=== PATIENT | male | born 1950 | race Caucasian/White ===

== ENCOUNTER 2016-07-21 13:09 | Inpatient (IN) | payer MEDICARE ==
[~2016-07-21] VITALS: Ht 172.7 cm; Wt 94.6 kg
[2016-07-21] VITALS (11 sets, daily range): BP systolic 109–152; BP diastolic 54–106
[2016-07-21] MEDS ORDERED: BUSPIRONE HCL15 MG PO (13:23)
[2016-07-21] MEDS ORDERED: GLIPIZIDE 5MG TA5 MG PO (13:24)
[2016-07-21] MEDS ORDERED: VITAMIN E 400400 IU PO (13:25)
[2016-07-21] MEDS ORDERED: BUPROPION HCL150 M1 PO (13:25)
[2016-07-21] MEDS ORDERED: SERTRALINE 100100 MG PO (13:25)
[2016-07-21] MEDS ORDERED: GABAPENTIN300 M1 PO (13:26)
[2016-07-21] MEDS ORDERED: ZOLPIDEM 5MG TAB5 MG PO (13:27)
[2016-07-21] MEDS ORDERED: PIOGLITAZONE HC30 M1 PO (13:27)
[2016-07-21] MEDS ORDERED: POTASSIUM CHLO10 ME4 PO (13:28)
[2016-07-21] MEDS ORDERED: MELOXICAM15 MG PO (13:28)
[2016-07-21] MEDS ORDERED: BUSPAR 10MG TAB10 MG PO (13:29)
[2016-07-21] MEDS ORDERED: LOVASTATIN40 MG PO (13:29)
[2016-07-21] MEDS ORDERED: LISINOPRIL20 MG PO (13:29)
[2016-07-21] MEDS ORDERED: METFORMIN 500M500 M1 PO (13:30)
[2016-07-21] MEDS ORDERED: [UNRECOGNIZED DRUG - REMARK] MC (13:30)
[2016-07-21] MEDS ORDERED: METOCLOPRAMIDE10 M3 PO (13:31)
[2016-07-21] MEDS ORDERED: ASPIRIN 81MG TA81 MG PO (13:31)
[2016-07-21 13:50] LABS: URINE BLOOD NEGATIVE (NEG)
--- NOTE | 2016-07-21 13:52 | Emergency Room Report ---
History of Present Illness Time Seen by MD Woodson Presenting Problem in Triage Pt arrived:Walked Presenting Problem:c/o "soreness" in RLQ x 2 days. 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 N Clinical Suspician of Infection? N Mental Status: 1 - Regular (Normal Baseline) Sepsis Risk:Possible Sepsis Risk Have you (or family members/close friends) recently traveled outside the [place]? N If Yes, where/when: Have you had exposure to infectious disease within the past month? N TB? Other? Specify: Source patient, RN notes reviewed Exam Limitations no limitations Comment Pt. comes to the ED with complaints of severe RLQ pain that started 3 weeks ago and then went away and returned about 2 days ago. No fever, no vomiting , no diarrhea, no urinary tract symptoms but very tender in RLQ. He has a history of DM type 2 and no abd. surgeries in the past. Cardiac Chest Pain Chest pain indicative of cardiac No ALLERGIES Coded Allergies: No Known Allergies (07/21/16) Home Medications Reported Medications Buspirone Hcl 15 MG PO DAILY #180 Glipizide (Glipizide 5MG) 5 MG PO BID #135 Sertraline Hydrochloride (Sertraline 100MG) 100 MG PO DAILY #180 Bupropion Hcl (Bupropion HCl Sr) 150 MG PO DAILY #270 Vitamin E (Vitamin E 400 UNITS) 400 IUNITS PO DAILY #1 Gabapentin 300 MG PO BID #90 PIOGLITAZONE HCL (Pioglitazone HCl) 30 MG PO KARINE #90 Zolpidem Tartrate (Zolpidem) 5 MG PO QHS #90 Potassium Chloride 10 MEQ PO DAILY #270 Meloxicam (Meloxicam 15MG) 15 MG PO BID #90 Buspirone Hcl (Buspar 10MG) 10 MG PO DAILY #60 Lisinopril 20 MG PO DAILY #90 Lovastatin 40 MG PO DAILY #90 Blood Sugar Diagnostic (Prodigy No Coding) 1 EACH MC BID #200 Metformin HCl (Metformin) 500 MG PO BID #360 METOCLOPRAMIDE HCL (Metoclopramide Hydrochloride) 10 MG PO DAILY #180 ASPIRIN (Aspirin) 81 MG PO DAILY History Medical History General Hypertension? Yes Diabetes? Yes Insulin Dependent: No Insulin Pump: No Home FSBS? Yes Depression? 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 Musculoskeletal see HPI Physical Exam Vital Signs Vital Signs Date Time Temp Pulse Resp B/P Pulse O2 O2 Flow FiO2 Ox Delivery Rate 07/21 1533 91 18 117/65 96 07/21 1455 86 18 135/77 93 07/21 1401 89 22 123/63 91 07/21 1312 98.0 96 24 144/106 96 General Appearance normal appearance, WD/WN, no apparent distress Respiratory Status No: respiratory distress. 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 No Results/Orders Laboratory Tests 07/21/16 1400: Sodium 133 L, Potassium 4.5, Chloride 99, Carbon Dioxide 22, BUN 33 H, Creatinine 1.5 H, Estimated Creat Clear 64, Estimated GFR (MDRD) 47, Glucose 187 H, Calcium 8.7, Total Bilirubin 0.6, AST 16, ALT 26, Alkaline Phosphatase 62, Total Protein 7.1, Albumin 3.6, Globulin 3.5 H, Albumin/Globulin Ratio 1.0 L, Amylase 48, Lipase 129 07/21/16 1345: Urine Color DK YELLOW, Urine Appearance CLEAR, Urine pH 5.5, Ur Specific [place] >= 1.030, Urine Protein NEGATIVE, Urine Ketones NEGATIVE, Urine Blood NEGATIVE, Urine Nitrate NEGATIVE, Urine Bilirubin 1+ H, Urine Urobilinogen 0.2, Ur Leukocyte Esterase NEGATIVE, Urine WBC 3-5, Urine Bacteria 2+, Hyaline Casts 5- 10, Urine Mucus 1+, Urine Glucose NEGATIVE 07/21/16 1320: WBC 11.2 H, RBC 4.67, Hgb 13.8 L, Hct 40.4 L, MCV 86.5, RDW 14.7, Plt Count 205, Gran % 85.0 H, Gran # 9.5 H, Total Counted 100, Lymphocytes % 12.0, Monocytes % 3, Neutrophils 79 H, Band Neutrophils 4, Lymphocytes (Manual) 13, Lymphocytes # 1.3, Monocytes (Manual) 3, Monocytes # 0.3, Myelocytes 1, Platelet Estimate NORMAL, Hypochromasia 1+, Macrocytosis 1+, PUBS MCHC 34.2, MCH 29.6 Current Medication Orders Sig/Nadia Start time Last Medication Dose Route Stop Time Status Admin Sodium Chloride 10 ML PRN PRN 07/21 1345 AC IV 07/22 1337 Orders Procedure Date/time Status DIET-NOTHING BY MOUTH 07/21 D Active CULTURE, URINE 07/[address] ABD/PELVIS REQ 07/21 1342 Complete IV SALINE LOCK 07/21 1337 Active URINALYSIS/COMPLETE 07/21 1336 Complete LIPASE 07/21 1336 Complete COMPLETE METABOLIC PANEL 07/21 1336 Complete CBC WITH AUTO DIFF 07/21 1336 Complete AMYLASE 07/21 1336 Complete DIFFERENTIAL-WBC 07/21 1320 Complete XRAY/CT/US XRAY/CT/US XRAY abdomen CT abdomen, pelvis CT interpretation by discussed w/radiologist Time results known: 1546 CT Results Acute appendicitis Departure Departure Time of Disposition 154 Disposition Still a Patient Clinical Impression Primary Impression: Acute appendicitis Qualifiers: Acute appendicitis type: with localized peritonitis Qualified Code: K35.3 - Acute appendicitis with localized peritonitis Condition STABLE Referrals Zachariah Reyna MD (Family) Additional Instructions Spoke with Dr. Tello and he asked for the OR team to be called in for surgery Discharge Counseling Counseled pt/family regarding diagnosis, test results, follow up needs ED Critical Care Critical Care No If Critical Care minutes are documented, the time involved in the performance of seperately reportable procedures was not counted toward critical care time documented. I directly delivered medical care to this critically ill and/or injured patient. Timely evaluation and treatment was necessary to address the significant organ system(s) dysfunction present in this patient. at 1545
[2016-07-21 13:54] LABS: HEMOGLOBIN 13.8 g/dL (14.1-18.0)
[2016-07-21 13:55] LABS: LYMPH # 1.3 K/mm3 (0.7-4.5)
[2016-07-21 14:21] LABS: URINE BILIRUBIN - DIPSTICK 1+ (NEG)
[2016-07-21 14:24] LABS: NEUTROPHILS 79 % (42-76)
--- NOTE | 2016-07-21 15:14 | RADIOLOGY REPORT PS360 ---
CT ABD PELVIS W/O CONTRAST CLINICAL INDICATION: Right lower quadrant pain or RLQ PAIN COMPARISON: None TECHNIQUE: Axial images obtained with sagittal and coronal reformats. PROCEDURE: Oral Contrast: None IV Contrast: None . FINDINGS: There is generalized motion artifact which does obscure fine detail. The liver, spleen, adrenal glands, and pancreas have an unremarkable unenhanced CT appearance. There is some slight increased density in the neck of the gallbladder which could be due to small stones versus artifact. No obstructing renal or ureteral calculi. There is a small hiatal hernia. No intestinal obstruction or free air is evident. The appendix is distended measuring up to 17 mm fluid-filled with thickened wall and stranding of the periappendiceal fat. There is also thickening of the cecum and mild thickening of the terminal ileum probably related to local inflammatory changes from appendicitis. No obvious abscess or local perforation evident. There is sigmoid diverticulosis but no evidence of diverticulitis. Right hip prosthesis is noted. No acute bony anomalies. IMPRESSION: 1. Distended thickened appendix with associated thickening of the cecum and terminal ileum with stranding of the periappendiceal and pericecal fat consistent with inflammatory process in the right lower quadrant. The distention and thickening of the appendix leads one to suspect appendicitis with subadjacent inflammatory changes of the cecum and terminal ileum. Terminal ileitis or typhlitis of the cecum also a consideration with subadjacent inflammatory changes of the appendix. No evidence of free air or abscess.
--- NOTE | 2016-07-21 19:40 | Operative Note ---
Surgeon/Diagnoses Surgeon/Saute Chef(s) Date of procedure: 07/21/16 Surgeon: MD Jodi Tello Diagnoses Pre-op diagnosis: Appendicitis Post-op diagnosis Necrotic/perforated appendicitis Procedure Procedure Procedure: Laparoscopic appendectomy Indications: NBA WADE is a 66 year-old Male with a history of RIGHT lower quadrant pain and radiographic evidence of severe appendicitis. Findings: Severe inflammatory changes with fat stranding and suppuration throughout the RIGHT lower quadrant Severe necrosis of appendix with perforation Procedure Description: After informed consent was obtained, the patient was taken to the operating room and placed in the supine position. General anesthesia was induced and the patient's abdomen was prepped and draped in a sterile fashion. After infiltration with local anesthetic and infraumbilical incision was made. A Veress needle was placed in position. The abdomen was insufflated. A 12 mm optical trochars placed in position. Under direct visualization a 5 mm trocar was placed in the suprapubic position and an additional 5 mm trochars placed in the LEFT lower quadrant. Evaluation of the RIGHT lower quadrant revealed severe inflammatory changes and suppuration throughout the RIGHT lower quadrant. Multiple loops of small bowel, omentum, colon, and mesentery were involved. Careful dissection was utilized to free multiple loops of tissue. Suffered no changes were noted throughout the area. Identification of the actual appendix was exceptionally difficult. Obvious necrosis and perforation was noted. The appendix was removed in a piecemeal fashion and placed in a retrieval bag (3). The apparent base was then carefully secured, elevated, and controlled with Endoloops (2). The entire area was thoroughly irrigated. An additional 5 mm trochars placed in the RIGHT upper quadrant to facilitate further dissection. A number 10 Bridger-Rodriguez drain was placed along the RIGHT gutter and appendiceal bed. A second drain was placed in a more horizontal plane along the bed. The first drain was exited through the superior/RIGHT lower quadrant trocar site. The second drain was exited through the suprapubic trocar site. The fascia at the infraumbilical trocar site was reapproximated utilizing the madison-close device. Pneumoperitoneum was released as the remaining trocar was removed. All wounds were irrigated and skin was closed with 4-0 Monocryl. Both Bridger-Rodriguez drains were secured with 2-0 nylon. Dressings were applied and the patient's anesthetic agents were reversed. He was extubated prior to transfer to recovery. EBL (ml): 25 Anesthesia: GETA Complications: No immediate Specimens: Appendiceal base (evaluate for appendiceal tissue) Appendix (multiple specimens) Disposition Disposition: Stable to recovery from where he will be transferred to the floor. at [id number]
[2016-07-21 20:48] LABS: URINE BILIRUBIN - DIPSTICK NEGATIVE (NEG); URINE BLOOD 2+ (NEG)
[2016-07-21] MEDS ORDERED: POTASSIUM CHLO10 ME3 PO (21:08)
[2016-07-22] VITALS (9 sets, daily range): BP systolic 112–163; BP diastolic 56–84
[2016-07-22 06:19] LABS: HEMOGLOBIN 11.9 g/dL (14.1-18.0); LYMPH % 12.4 % (10-50)
--- NOTE | 2016-07-22 08:41 | POST-OP PROGRESS NOTE ---
See Addendum Post Op Subjective Data Patient is post-op day 1 Subjective data: Feels "fine". Post op objective data Vitals,I&O,and Labs: Vital signs, intake and output,and available lab data for the last 24 hours is as noted below. Vital Signs Date Time Temp Pulse Resp B/P Pulse O2 O2 Flow FiO2 Ox Delivery Rate 07/22 0815 99.0 100 20 134/74 93 ROOM AIR 2 07/22 0738 18 07/22 0320 98.7 86 18 116/67 99 2 07/22 0220 98.5 86 18 122/60 97 2 07/22 0146 2 07/22 0120 97.8 85 16 130/61 98 2 07/22 0114 18 07/22 0111 2 07/22 0020 98.0 83 18 112/63 98 2 07/21 2348 18 07/21 2344 2 07/21 2320 98.0 87 18 143/72 95 2 07/21 2250 97.8 84 18 109/54 97 2 07/21 2249 2 07/21 2220 98.0 89 18 120/68 98 2 07/21 2158 2 07/21 2150 98.0 89 18 126/72 98 2 07/21 2120 97.5 90 18 134/73 96 2 07/218 2 07/21 2105 97.6 95 17 147/74 96 2 07/21 2103 97.5 92 18 146/74 93 OXYGEN 2 07/21 2102 89 20 149/73 96 07/21 2054 97.4 07/21 2050 97.1 91 18 152/75 93 2 07/21 2049 97.5 92 18 146/74 93 2 07/21 2035 97.5 92 18 146/74 93 2 07/21 2030 97.5 95 18 132/62 96 OXYGEN 07/21 2027 96 18 138/65 95 OXYGEN 07/21 2017 16 07/21 2017 97 18 139/67 97 OXYGEN 07/21 2007 16 07/21 2007 95 18 134/68 96 OXYGEN 07/21 1957 103 16 140/66 95 OXYGEN 07/21 1947 16 07/21 1947 105 16 147/80 96 OXYGEN 07/21 1937 97.4 115 16 175/83 94 OXYGEN 07/21 1634 99.9 90 20 136/72 96 07/21 1629 99.9 90 20 136/72 96 07/21 1604 99.9 89 20 149/73 96 07/21 1559 99.9 89 20 149/73 96 07/21 1533 91 18 117/65 96 07/21 1455 86 18 135/77 93 07/21 1401 89 22 123/63 91 07/21 1312 98.0 96 24 144/106 96 07/21 1500 07/21 2300 07/22 0700 Intake Total 925 1810 Output Total 245 700 Balance 680 1110 Intake, IV 600 1270 Intake, Oral 325 540 Intake, Tube 0 Irrigant Output, 0 Emesis Output, 0 Estimated Blood Loss Output, Other 45 Output, Urine 200 700 Patient 95.256 kg 94.575 kg Weight Laboratory Tests Test Result Date Time Chemistry Sodium (mmoL/L) 134 07/22 0555 Potassium (mmoL/L) 4.2 07/22 0555 Chloride (mmoL/L) 101 07/22 0555 Carbon Dioxide (mmoL/L) 28 07/22 0555 BUN (mg/dL) 27 07/22 0555 Creatinine (mg/dL) 1.2 07/22 0555 Estimated Creat Clear (ML/MIN) 79 07/22 0555 Estimated GFR (MDRD) (ML/MIN) 60 07/22 0555 Glucose (mg/dL) 172 07/22 0555 Calcium (mg/dL) 8.0 07/22 0555 Total Bilirubin (mg/dL) 0.6 07/21 1400 AST (U/L) 16 07/21 1400 ALT (U/L) 26 07/21 1400 Alkaline Phosphatase (U/L) 62 07/21 1400 Total Protein (gm/dL) 7.1 07/21 1400 Albumin (gm/dL) 3.6 07/21 1400 Globulin (gm/dL) 3.5 07/21 1400 Albumin/Globulin Ratio 1.0 07/21 1400 Amylase (U/L) 48 07/21 1400 Lipase (U/L) 129 07/21 1400 Hematology WBC (K/MM3) 7.9 07/22 0555 RBC (M/mm3) 4.00 07/22 0555 Hgb (g/dL) 11.9 07/22 0555 Hct (%) 36.0 07/22 0555 MCV (fl) 89.9 07/22 0555 RDW (%) 14.4 07/22 0555 Plt Count (K/mm3) 160 07/22 0555 MPV (fl) 8.7 07/22 0555 Gran % (%) 79.6 07/22 0555 Gran # (K/mm3) 6.3 07/22 0555 Total Counted (#CELLS) 100 07/21 1320 Lymphocytes % (%) 12.4 07/22 0555 Monocytes % (%) 7.3 07/22 0555 Eosinophils % (%) 0.4 07/22 0555 Basophils % (%) 0.3 07/22 0555 Neutrophils (%) 79 07/21 1320 Band Neutrophils (%) 4 07/21 1320 Lymphocytes (Manual) (%) 13 07/21 1320 Lymphocytes # (K/mm3) 1.0 07/22 0555 Monocytes (Manual) (%) 3 07/21 1320 Monocytes # (K/mm3) 0.6 07/22 0555 Eosinophils # (K/mm3) 0.0 07/22 0555 Basophils # (K/MM3) 0.0 07/22 0555 Myelocytes (%) 1 07/21 1320 Platelet Estimate NORMAL 07/21 1320 Hypochromasia 1+ 07/21 1320 Macrocytosis 1+ 07/21 1320 PUBS MCHC (g/dl) 33.0 07/22 555 Immunology MCH (pg) 29.6 07/22 05 Urines Urine Color YELLOW 07/21 1648 Urine Appearance CLEAR 07/21 1648 Urine pH 5.5 07/218 Ur Specific [place] >= 1.030 07/21 1648 Urine Protein (mg/dL) NEGATIVE 07/21 1648 Urine Ketones (mg/dL) NEGATIVE 07/21 1648 Urine Blood 2+ 07/21 1648 Urine Nitrate NEGATIVE 07/21 1648 Urine Bilirubin NEGATIVE 07/21 1648 Urine Urobilinogen (E.U./dL) 0.2 07/21 1648 Ur Leukocyte Esterase NEGATIVE 07/21 1648 Urine WBC (wbc/hpf) OCC 07/21 1648 Urine Bacteria TRACE 07/218 Hyaline Casts (#/lpf) 5-10 07/21 1345 Urine Mucus 1+ 07/21 1345 Urine Yeast 3+ 07/21 1648 Urine Glucose NEGATIVE 07/21 1648 Physical Exam VS/I&O Vital Signs Date Time Temp Pulse Resp B/P Pulse O2 O2 Flow FiO2 Ox Delivery Rate 07/22 0815 99.0 100 20 134/74 93 ROOM AIR 2 07/22 0738 18 07/22 0320 98.7 86 18 116/67 99 2 07/22 0220 98.5 86 18 122/60 97 2 07/22 0146 2 07/22 0120 97.8 85 16 130/61 98 2 07/22 0114 18 07/22 0111 2 07/22 0020 98.0 83 18 112/63 98 2 07/21 2348 18 07/21 2344 2 07/21 2320 98.0 87 18 143/72 95 2 07/21 2250 97.8 84 18 109/54 97 2 07/21 2249 2 07/21 2220 98.0 89 18 120/68 98 2 07/21 2158 2 07/21 2150 98.0 89 18 126/72 98 2 07/21 2120 97.5 90 18 134/73 96 2 07/218 2 07/21 2105 97.6 95 17 147/74 96 2 07/21 2103 97.5 92 18 146/74 93 OXYGEN 2 07/21 2102 89 20 149/73 96 07/21 2054 97.4 07/21 2050 97.1 91 18 152/75 93 2 07/21 2049 97.5 92 18 146/74 93 2 07/21 2035 97.5 92 18 146/74 93 2 07/21 2030 97.5 95 18 132/62 96 OXYGEN 07/21 2027 96 18 138/65 95 OXYGEN 07/21 2017 16 07/21 2017 97 18 139/67 97 OXYGEN 07/21 2007 16 07/21 2007 95 18 134/68 96 OXYGEN 07/217 103 16 140/66 95 OXYGEN 07/217 16 07/21 1947 105 16 147/80 96 OXYGEN 07/21 193 97.4 115 16 175/83 94 OXYGEN 07/21 1634 99.9 90 20 136/72 96 07/21 1629 99.9 90 20 136/72 96 07/21 1604 99.9 89 20 149/73 96 07/21 1559 99.9 89 20 149/73 96 07/21 1533 91 18 117/65 96 07/21 1455 86 18 135/77 93 07/21 1401 89 22 123/63 91 07/21 1312 98.0 96 24 144/106 96 I&O 07/22 0700 Intake Total 2735 Output Total 945 Balance 1790 Intake, IV 1870 Intake, Oral 865 Intake, Tube 0 Irrigant Output, 0 Emesis Output, 0 Estimated Blood Loss Output, Other 45 Output, Urine 900 Patient 94.575 kg Weight Exam General appearance no acute distress Respiratory no distress Cardiovascular regular rate and rhythm Abdomen soft (dressing intact.no cellulitis.) Post op patient plan Diagnoses: Perforated/necrotic appendicitis - overall, doing well status post lap scopic appendectomy Plan: Advance diet, Ambulate, Antibiotics, DVT prophylaxis This inpt stay is expected to cross 2 MNs from start of care Yes at 0840
--- NOTE | 2016-07-22 11:28 | PHARMACY CLINIC NOTE ---
Patient Demographics Patient Demographics Admission date: 07/21/16 Date: 07/22/16 Time: 1127 Allergies Coded Allergies: No Known Allergies (07/21/16) HEIGHT- FT: 5 IN: 8.00 K.575 VTE General Information Labs: Laboratory Tests 07/22 07/21 0555 1320 Hematology Hgb (14.1 - 18.0 g/dL) 11.9 L 13.8 L Hct (42.0 - 52.0 %) 36.0 L 40.4 L Plt Count (142 - 424 K/mm3) 160 205 Disclaimer The following section includes nursing documentation that has been pulled in for pharmacy review. Patient's VTE score: 3 Patient's VTE Risk: LOW RISK VTE prophylaxis NQF 0371 VTE prophylaxis ordered? Yes Type of prophylaxis/treatment: Heparin, ICD at 1128
[2016-07-23 03:50] VITALS: BP 153/81
[2016-07-23 06:52] LABS: HEMOGLOBIN 11.4 g/dL (14.1-18.0); LYMPH # 0.9 K/mm3 (0.7-4.5); LYMPH % 13.9 % (10-50)
--- NOTE | 2016-07-23 08:10 | POST-OP PROGRESS NOTE ---
Post Op Subjective Data Patient is post-op day 2 Subjective data: No new complaints. Tolerating full liquids. Post op objective data Vitals,I&O,and Labs: Vital signs, intake and output,and available lab data for the last 24 hours is as noted below. Vital Signs Date Time Temp Pulse Resp B/P Pulse O2 O2 Flow FiO2 Ox Delivery Rate 07/23 0350 98.6 82 20 153/81 90 ROOM AIR 07/22 2349 16 07/22 2326 97.8 66 18 116/56 97 ROOM AIR 07/22 2005 99.8 94 20 144/75 91 ROOM AIR 07/22 1950 100.1 100 20 136/84 91 07/22 1542 20 07/22 1536 100.1 100 20 136/84 91 ROOM AIR 07/22 1440 22 07/22 1142 99.1 104 22 163/76 95 ROOM AIR 07/22 0832 99.0 100 20 134/74 93 07/22 0815 99.0 100 20 134/74 93 ROOM AIR 2 07/22 1500 07/22 2300 07/23 0700 Intake Total 600 2355 3671 Output Total 600 320 460 Balance 0 2035 3211 Intake, IV 1994 3671 Intake, Oral 600 360 Output, 160 Estimated Blood Loss Output, Other 120 Output, Urine 600 200 300 Laboratory Tests Test Result Date Time Chemistry Sodium (mmoL/L) 136 07/23 0635 Potassium (mmoL/L) 4.1 07/23 0635 Chloride (mmoL/L) 102 07/23 0635 Carbon Dioxide (mmoL/L) 28 07/23 0635 BUN (mg/dL) 16 07/23 0635 Creatinine (mg/dL) 1.2 07/23 0635 Estimated Creat Clear (ML/MIN) 79 07/23 0635 Estimated GFR (MDRD) (ML/MIN) 60 07/23 0635 Glucose (mg/dL) 168 07/23 0635 POC Glucose (mg/dl) 151 07/23 0607 Calcium (mg/dL) 8.3 07/23 0635 Total Bilirubin (mg/dL) 0.6 07/21 1400 AST (U/L) 16 07/21 1400 ALT (U/L) 26 07/21 1400 Alkaline Phosphatase (U/L) 62 07/21 1400 Total Protein (gm/dL) 7.1 07/21 1400 Albumin (gm/dL) 3.6 07/21 1400 Globulin (gm/dL) 3.5 07/21 1400 Albumin/Globulin Ratio 1.0 07/21 1400 Amylase (U/L) 48 07/21 1400 Lipase (U/L) 129 07/21 1400 Hematology WBC (K/MM3) 6.6 07/23 634 RBC (M/mm3) 3.84 07/23 634 Hgb (g/dL) 11.4 07/23 634 Hct (%) 33.9 07/23 634 MCV (fl) 88.2 07/23 634 RDW (%) 14.0 07/23 634 Plt Count (K/mm3) 160 07/23 634 MPV (fl) 9.4 07/23 634 Gran % (%) 77.5 07/23 634 Gran # (K/mm3) 5.1 07/23 634 Total Counted (#CELLS) 100 07/21 1320 Lymphocytes % (%) 13.9 07/23 634 Monocytes % (%) 6.9 07/23 634 Eosinophils % (%) 1.3 07/23 0535 Basophils % (%) 0.3 07/23 634 Neutrophils (%) 79 07/21 1320 Band Neutrophils (%) 4 07/21 1320 Lymphocytes (Manual) (%) 13 07/21 1320 Lymphocytes # (K/mm3) 0.9 07/23 634 Monocytes (Manual) (%) 3 07/21 1320 Monocytes # (K/mm3) 0.5 07/23 634 Eosinophils # (K/mm3) 0.1 07/23 634 Basophils # (K/MM3) 0.0 07/23 634 Myelocytes (%) 1 07/21 1320 Platelet Estimate NORMAL 07/21 1320 Hypochromasia 1+ 07/21 1320 Macrocytosis 1+ 07/21 1320 PUBS MCHC (g/dl) 33.5 07/23 634 Immunology MCH (pg) 29.6 07/23 634 Urines Urine Color YELLOW 07/21 1648 Urine Appearance CLEAR 07/21 1648 Urine pH 5.5 07/21 1648 Ur Specific [place] >= 1.030 07/21 164 Urine Protein (mg/dL) NEGATIVE 07/21 1648 Urine Ketones (mg/dL) NEGATIVE 07/21 1648 Urine Blood 2+ 07/21 1648 Urine Nitrate NEGATIVE 07/21 1648 Urine Bilirubin NEGATIVE 07/21 1648 Urine Urobilinogen (E.U./dL) 0.2 07/21 1648 Ur Leukocyte Esterase NEGATIVE 07/21 1648 Urine WBC (wbc/hpf) OCC 07/21 1648 Urine Bacteria TRACE 07/21 1648 Hyaline Casts (#/lpf) 5-10 07/21 1345 Urine Mucus 1+ 07/21 1345 Urine Yeast 3+ 07/21 1648 Urine Glucose NEGATIVE 07/21 1648 Physical Exam VS/I&O Vital Signs Date Time Temp Pulse Resp B/P Pulse O2 O2 Flow FiO2 Ox Delivery Rate 07/23 0350 98.6 82 20 153/81 90 ROOM AIR 07/22 2349 16 07/22 2326 97.8 66 18 116/56 97 ROOM AIR 07/22 2005 99.8 94 20 144/75 91 ROOM AIR 07/22 1950 100.1 100 20 136/84 91 07/22 1542 20 07/22 1536 100.1 100 20 136/84 91 ROOM AIR 07/22 1440 22 07/22 1142 99.1 104 22 163/76 95 ROOM AIR 07/22 0832 99.0 100 20 134/74 93 07/22 0815 99.0 100 20 134/74 93 ROOM AIR 2 I&O 07/23 0700 Intake Total 6626 Output Total 1380 Balance 5246 Intake, IV 5666 Intake, Oral 960 Output, 160 Estimated Blood Loss Output, Other 120 Output, Urine 1100 Exam General appearance no acute distress Respiratory no distress Cardiovascular regular rate and rhythm Abdomen soft Post op patient plan Diagnoses: Necrotic/perforated appendicitis-overall, doing exceptionally well status post laparoscopic appendectomy Plan: Ambulate, Antibiotics, DVT prophylaxis This inpt stay is expected to cross 2 MNs from start of care Yes Additional data: Continue IV antibiotics through today and possibly discharge home on by mouth antibiotics tomorrow morning. Antibiotic Stewardship (2) Current Culture Results Microbiology 07/21 1345 URINE CC: Urine Culture - COMP Infxn that will respond? Yes Right drug,dose,and route? Yes More targeted antbx? No How long atbx needed? 10 at 0809
[2016-07-23 08:42] VITALS: BP 158/73
[2016-07-23 09:45] VITALS: BP 159/100
[2016-07-23 12:15] VITALS: BP 159/100
[2016-07-23 16:08] VITALS: BP 145/74; BP 161/116
[2016-07-23 20:16] VITALS: BP 151/82
[2016-07-24] VITALS (7 sets, daily range): BP systolic 126–164; BP diastolic 63–90
--- NOTE | 2016-07-24 08:58 | POST-OP PROGRESS NOTE ---
Post Op Subjective Data Patient is post-op day 3 Subjective data: Feels "fine". Post op objective data Vitals,I&O,and Labs: Vital signs, intake and output,and available lab data for the last 24 hours is as noted below. Vital Signs Date Time Temp Pulse Resp B/P Pulse O2 O2 Flow FiO2 Ox Delivery Rate 07/24 0901 98.8 80 18 128/78 93 07/24 0846 98.8 80 18 128/78 93 ROOM AIR 07/24 0436 98.5 82 18 141/63 90 ROOM AIR 07/24 0014 98.0 79 20 126/68 93 ROOM AIR 07/23 2156 98.7 86 18 151/82 95 07/23 2145 18 07/23 2016 98.7 86 18 151/82 95 ROOM AIR 07/23 1608 98.6 81 18 145/74 94 ROOM AIR 07/23 1229 18 07/23 1215 98.2 96 20 159/100 91 ROOM AIR 07/23 1500 07/23 2300 07/24 0700 Intake Total 1000 475 240 Output Total 260 70 Balance 1000 215 170 Intake, IV 240 Intake, Oral 1000 475 Output, Other 260 70 Laboratory Tests Test Result Date Time Chemistry Sodium (mmoL/L) 136 07/23 0635 Potassium (mmoL/L) 4.1 07/23 0635 Chloride (mmoL/L) 102 07/23 0635 Carbon Dioxide (mmoL/L) 28 07/23 0635 BUN (mg/dL) 16 07/23 0635 Creatinine (mg/dL) 1.2 07/23 0635 Estimated Creat Clear (ML/MIN) 79 07/23 0635 Estimated GFR (MDRD) (ML/MIN) 60 07/23 0635 Glucose (mg/dL) 168 07/23 0635 POC Glucose (mg/dl) 136 07/24 0627 Calcium (mg/dL) 8.3 07/23 0635 Total Bilirubin (mg/dL) 0.6 07/21 1400 AST (U/L) 16 07/21 1400 ALT (U/L) 26 07/21 1400 Alkaline Phosphatase (U/L) 62 07/21 1400 Total Protein (gm/dL) 7.1 07/21 1400 Albumin (gm/dL) 3.6 07/21 1400 Globulin (gm/dL) 3.5 07/21 1400 Albumin/Globulin Ratio 1.0 07/21 1400 Amylase (U/L) 48 07/21 1400 Lipase (U/L) 129 07/21 1400 Hematology WBC (K/MM3) 6.6 07/23 634 RBC (M/mm3) 3.84 07/23 634 Hgb (g/dL) 11.4 07/23 06 Hct (%) 33.9 07/23 634 MCV (fl) 88.2 07/23 634 RDW (%) 14.0 07/23 634 Plt Count (K/mm3) 160 07/23 634 MPV (fl) 9.4 07/23 634 Gran % (%) 77.5 07/23 634 Gran # (K/mm3) 5.1 07/23 634 Total Counted (#CELLS) 100 07/21 1320 Lymphocytes % (%) 13.9 07/23 06 Monocytes % (%) 6.9 07/23 634 Eosinophils % (%) 1.3 07/23 634 Basophils % (%) 0.3 07/23 634 Neutrophils (%) 79 07/21 1320 Band Neutrophils (%) 4 07/21 1320 Lymphocytes (Manual) (%) 13 07/21 1320 Lymphocytes # (K/mm3) 0.9 07/23 0635 Monocytes (Manual) (%) 3 07/21 1320 Monocytes # (K/mm3) 0.5 07/23 634 Eosinophils # (K/mm3) 0.1 07/23 06 Basophils # (K/MM3) 0.0 07/23 0535 Myelocytes (%) 1 07/21 1320 Platelet Estimate NORMAL 07/21 1320 Hypochromasia 1+ 07/21 1320 Macrocytosis 1+ 07/21 1320 PUBS MCHC (g/dl) 33.5 07/23 634 Immunology MCH (pg) 29.6 07/23 634 Urines Urine Color YELLOW 07/21 1648 Urine Appearance CLEAR 07/21 1648 Urine pH 5.5 07/21 1648 Ur Specific [place] >= 1.030 07/21 164 Urine Protein (mg/dL) NEGATIVE 07/21 1648 Urine Ketones (mg/dL) NEGATIVE 07/21 1648 Urine Blood 2+ 07/21 1648 Urine Nitrate NEGATIVE 07/21 1648 Urine Bilirubin NEGATIVE 07/21 1648 Urine Urobilinogen (E.U./dL) 0.2 07/21 1648 Ur Leukocyte Esterase NEGATIVE 07/21 1648 Urine WBC (wbc/hpf) OCC 07/21 1648 Urine Bacteria TRACE 07/21 1648 Hyaline Casts (#/lpf) 5-10 07/21 1345 Urine Mucus 1+ 07/21 1345 Urine Yeast 3+ 07/21 1648 Urine Glucose NEGATIVE 07/21 1648 Physical Exam VS/I&O Vital Signs Date Time Temp Pulse Resp B/P Pulse O2 O2 Flow FiO2 Ox Delivery Rate 07/24 0901 98.8 80 18 128/78 93 07/24 0846 98.8 80 18 128/78 93 ROOM AIR 07/24 0436 98.5 82 18 141/63 90 ROOM AIR 07/24 0014 98.0 79 20 126/68 93 ROOM AIR 07/23 2156 98.7 86 18 151/82 95 07/23 2145 18 07/23 2016 98.7 86 18 151/82 95 ROOM AIR 07/23 1608 98.6 81 18 145/74 94 ROOM AIR 07/23 1229 18 07/23 1215 98.2 96 20 159/100 91 ROOM AIR I&O 07/24 0700 Intake Total 1715 Output Total 330 Balance 1385 Intake, IV 240 Intake, Oral 1475 Output, Other 330 Exam General appearance no acute distress Respiratory no distress Cardiovascular regular rate and rhythm Abdomen soft (incisions c/d/i) Post op patient plan Diagnoses: Perforated/necrotic appendicitis-doing very well status post lap scopic appendectomy Plan: Ambulate, Antibiotics, likely discharge home later today This inpt stay is expected to cross 2 MNs from start of care Yes Antibiotic Stewardship (2) Infxn that will respond? Yes Right drug,dose,and route? Yes More targeted antbx? No at [id number]
[2016-07-24] MEDS ORDERED: NORCO 325 MG-51 TAB PO (16:12)
[2016-07-24] MEDS ORDERED: AUGMENTIN 875-1 EACH PO (16:12)
--- NOTE | 2016-07-24 16:52 | Discharge Summary Report ---
General Admit date: 07/21/16 Discharge date: 07/24/16 Admission Dx: Perforated/necrotic appendicitis Discharge Dx: Same Hospital course: The patient was admitted to the surgical service after undergoing laparoscopic appendectomy for perforated/necrotic appendicitis. Please see operative report for detail. Postoperatively, he progressed exceptionally well. He remained afebrile with stable normal vital signs. He remained on Zosyn during hospitalization and was converted to Augmentin for discharge. He was deemed appropriate for discharge on postoperative day 3. Condition at discharge: improved Problem List Medical Problems Acute appendicitis Allergies Coded Allergies: No Known Allergies (07/21/16) [facility] Rec [place] summary Medications Reported Medications Buspirone Hcl 15 MG PO BID #180 TAB Sertraline Hydrochloride (Sertraline 100MG) 200 MG PO DAILY #180 TAB Bupropion Hcl (Bupropion HCl Sr) 150 MG PO TID #270 TAB Gabapentin 300 MG PO DAILY #90 CAPSULE Meloxicam (Meloxicam 15MG) 15 MG PO DAILY #90 TAB Metformin HCl (Metformin) 1,000 MG PO BID #360 TAB POTASSIUM CHL (Potassium Chloride) 10 MEQ PO TID Glipizide (Glipizide 5MG) 5 MG PO BID #135 Vitamin E (Vitamin E 400 UNITS) 400 IUNITS PO DAILY #1 Zolpidem Tartrate (Zolpidem) 5 MG PO QHS #90 Lisinopril 20 MG PO DAILY #90 Lovastatin 40 MG PO DAILY #90 METOCLOPRAMIDE HCL (Metoclopramide Hydrochloride) 10 MG PO DAILY #180 ASPIRIN (Aspirin) 81 MG PO DAILY Txs and Procedures Treatments and Procedures: Laparoscopic appendectomy Labs: Laboratory Tests 07/24/16 1133: POC Glucose 157 H 07/24/16 0627: POC Glucose 136 H 07/23/16 2144: POC Glucose 144 H 07/23/16 1702: POC Glucose 140 H 07/23/16 1205: POC Glucose 153 H 07/23/16 0635: Sodium 136, Potassium 4.1, Chloride 102, Carbon Dioxide 28, BUN 16, Creatinine 1.2, Estimated Creat Clear 79, Estimated GFR (MDRD) 60, Glucose 168 H, Calcium 8.3 L, WBC 6.6, RBC 3.84 L, Hgb 11.4 L, Hct 33.9 L, MCV 88.2, RDW 14.0, Plt Count 160, MPV 9.4, Gran % 77.5, Gran # 5.1, Lymphocytes % 13.9, Monocytes % 6.9 , Eosinophils % 1.3, Basophils % 0.3, Lymphocytes # 0.9, Monocytes # 0.5, Eosinophils # 0.1, Basophils # 0.0, PUBS MCHC 33.5, MCH 29.6 07/23/16 0607: POC Glucose 151 H 07/22/16 2052: POC Glucose 140 H 07/22/16 1605: POC Glucose 158 H 07/22/16 1127: POC Glucose 171 H 07/22/16 0653: POC Glucose 164 H 07/22/16 0555: Sodium 134 L, Potassium 4.2, Chloride 101, Carbon Dioxide 28, BUN 27 H, Creatinine 1.2, Estimated Creat Clear 79, Estimated GFR (MDRD) 60, Glucose 172 H, Calcium 8.0 L, WBC 7.9, RBC 4.00 L, Hgb 11.9 L, Hct 36.0 L, MCV 89.9, RDW 14.4, Plt Count 160, MPV 8.7, Gran % 79.6, Gran # 6.3, Lymphocytes % 12.4, Monocytes % 7.3, Eosinophils % 0.4, Basophils % 0.3, Lymphocytes # 1.0, Monocytes # 0.6, Eosinophils # 0.0, Basophils # 0.0, PUBS MCHC 33.0, MCH 29.6 07/21/16 2134: POC Glucose 208 H at 1651
== END 2016-07-24 18:02 | disposition home or self-care (01) | DRG 340 ==
LOC: ER 13:09 → SDC 16:36 → ER 16:36 → 2ND 16:49 → SDC 16:49 → 2ND 20:30
PROVIDERS: General Practice; Surgery
PROC: 0DTJ4ZZ Resection of Appendix, Percutaneous Endoscopic Approach (ICD-10-PCS; principal; 2016-07-21 14:30)
DX: K35.3 Acute appendicitis with localized peritonitis (principal); E11.9 Type 2 diabetes mellitus without complications; Z79.4 Long term (current) use of insulin
CPT/HCPCS: J0131; J0330; J2405; J2543; J2710

== ENCOUNTER → 2017-04-30 | Outpatient (CLI) | payer MEDICARE ==
[~2017-04-30] MED LIST: ASPIRIN 81MG TA81 MG PO; AUGMENTIN 875-1 EACH PO; BUPROPION HCL150 M1 PO; BUSPAR 10MG TAB10 MG PO; BUSPIRONE HCL15 MG PO; GABAPENTIN300 M1 PO; GLIPIZIDE 5MG TA5 MG PO; LISINOPRIL20 MG PO; LOVASTATIN40 MG PO; MELOXICAM15 MG PO; METFORMIN 500M500 M1 PO; METOCLOPRAMIDE10 M3 PO; NORCO 325 MG-51 TAB PO; PIOGLITAZONE HC30 M1 PO; POTASSIUM CHLO10 ME3 PO; POTASSIUM CHLO10 ME4 PO; SERTRALINE 100100 MG PO; VITAMIN E 400400 IU PO; ZOLPIDEM 5MG TAB5 MG PO; [UNRECOGNIZED DRUG - REMARK] MC
--- NOTE | 2017-04-30 15:09 | RADIOLOGY REPORT PS360 ---
FOOT-LT-3 VIEWS HISTORY: LEFT FOOT PAIN ORDERING PHYSICIAN: Zachariah Reyna MD PATIENT AGE: 66 years COMPARISON: None FINDINGS: There is an old fifth metatarsal fracture which is healed. Severe osteoarthritic changes are present at the first metatarsophalangeal joint. There is mild lateral bowing of the distal aspect of the first metatarsal which could be due to an old fracture. Prominent spurring is present along the distal aspect of the first metatarsal inferiorly. There is a prominent calcaneal spur. There is some flattening of the navicular and there is some cortical irregularity of the distal aspect of the talus at the talonavicular joint medially. These findings could be due to old injury. Chronic avascular necrosis of the navicular is also a consideration. Please correlate with any old films if available. IMPRESSION: 1. No acute fracture. 2. Old fifth metatarsal fracture with possible old talonavicular fracture versus avascular necrosis of the navicular 3. 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
== END ==
LOC: RAD 08:50
DX: M79.672 Pain in left foot (principal)